=== PATIENT | female | born 1975 | race Caucasian/White ===

== ENCOUNTER 2021-11-06 19:26 | Emergency (ER) | payer OTHER, SELFPAY ==
[2021-11-06 19:29] VITALS: BP 179/116; PULSE 113; RESP 20; TEMP 36.3; O2SAT 99
--- NOTE | 2021-11-06 19:35 | PC.NURSE ---
Patient states she has not seen her PCP in a while and has not been on her meds that she needs to be on such as blood thinners and bp meds.
--- NOTE | 2021-11-06 19:46 | ECG_ITS ---
Measurements Intervals [place] Rate: 102 P: 32 AR: 120 QRS: 47 QRSD: 90 T: -14 QT: 350 QTc: 456 Interpretive Statements SINUS TACHYCARDIA NONSPECIFIC ST & T-WAVE ABNORMALITY- ANTEROLAT/INF LEADS BASELINE ARTIFACT- I, III, AVL BORDERLINE ECG NO PREVIOUS ECG AVAILABLE FOR COMPARISON Electronically Signed On 11-06-2021 21:38:39 CDT by Atul Cash D.O.
--- NOTE | 2021-11-06 19:48 | ED.GENADULT ---
HPI - General Adult General Chief complaint: Skin/Abscess/Foreign Body Stated complaint: Skin Abscess, eye swelling Time Seen by Provider: 11/06/21 19:39 History of Present Illness HPI narrative: 46-year-old female presenting to the emergency department for evaluation of a bacterial infection on her forehead. Patient states symptoms started a few days ago. Patient states since the infection started she does have some swelling tracking down her forehead. Patient denies any other complaints. Patient does use fentanyl. Related Data Allergies Allergy/AdvReac Type Severity Reaction Status Date / Time amitriptyline AdvReac Other Verified 11/06/21 19:34 sertraline [From Zoloft] AdvReac Other Verified 11/06/21 19:34 Review of Systems Review of Systems: CONSTITUTIONAL: Denies fever, chills, or sweats. EYES: Denies visual changes, redness, or discharge. ENT: Denies rhinorrhea, congestion, sore throat, or otalgia. CARDIOVASCULAR: Denies chest pain, palpitations, or edema. RESPIRATORY: Denies cough or dyspnea. GASTROINTESTINAL: Denies abdominal pain, nausea, vomiting, or diarrhea. GENITOURINARY: Denies dysuria or hematuria. SKIN: See HPI MUSCULOSKELETAL: Denies back pain, joint pain, or myalgia. NEUROLOGIC: Denies headache, numbness, or weakness. Exam Narrative: APPEARANCE: Well appearing, no pain, no distress, well-nourished. HEAD: normocephalic, atraumatic. EYES: PERRLA/EOMI, conjunctivae clear. NOSE: Normal no drainage EARS:TMS clear with good light reflex. THROAT: Pharynx clear, no exudate. NECK: Supple. No adenopathy, no masses. RESPIRATORY: Airway patent, respirations nonlabored. Clear to auscultation bilaterally, no rales, rhonchi, wheezing. CARDIOVASCULAR: Regular rate and rhythm without murmurs rubs or gallops. ABDOMINAL: Soft, nontender, nondistended, normal bowel sounds MUSCULOSKELETAL: Moves all extremities. Strength/ROM intact, No edema, No calf tenderness. NEURO: Alert. Cranial nerves II through XII intact. Good gait. Good coordination SKIN: Erythema of medial forehead at the hairline. Area is excoriated. Erythema is localized to a 2 cm area. Patient does have some edema lower on her forehead which appears to be dependent edema Course Course Emergency Course: Patient was started on antibiotics in the emergency department. Patient was updated on the results of her exam and plan for treatment. Patient was encouraged to have close follow-up with primary care physician. Vital Signs Vital signs: Vital Signs Temperature 97.4 F L 11/06/21 19:29 Pulse Rate 113 H 11/06/21 19:29 Respiratory Rate 20 11/06/21 19:29 Blood Pressure 179/116 H 11/06/21 19:29 Pulse Oximetry 99 11/06/21 19:29 Oxygen Delivery Room Air 11/06/21 19:29 Temperature 97.4 F L 11/06/21 19:29 Pulse Rate 95 11/06/21 20:29 Respiratory Rate 18 11/06/21 20:29 Blood Pressure 157/98 H 11/06/21 20:29 Pulse Oximetry 99 11/06/21 20:29 Oxygen Delivery Room Air 11/06/21 19:29 Medical Decision Making Vital Signs Vital Signs: Vital Signs Temperature 97.4 F L 11/06/21 19:29 Pulse Rate 113 H 11/06/21 19:29 Respiratory Rate 20 11/06/21 19:29 Blood Pressure 179/116 H 11/06/21 19:29 Pulse Oximetry 99 11/06/21 19:29 Oxygen Delivery Room Air 11/06/21 19:29 Temperature 97.4 F L 11/06/21 19:29 Pulse Rate 95 11/06/21 20:29 Respiratory Rate 18 11/06/21 20:29 Blood Pressure 157/98 H 11/06/21 20:29 Pulse Oximetry 99 11/06/21 20:29 Oxygen Delivery Room Air 11/06/21 19:29 Discharge Plan Discharge Clinical Impression: Cellulitis Patient Disposition: Home, Self-Care Condition: Stable Instructions: Antibiotic Form, Impetigo (ED), Cellulitis (ED) Additional Instructions: Antibiotic as directed until completed. Have close follow-up with your primary care physician. Prescriptions: New clindamycin HCl 150 mg capsule 150 mg PO Q6H 7 Days Qty: 28 0RF Follow-up/Referr
[2021-11-06] MEDS: CLINDAMYCIN HCL 150 MG CAP PO (20:12)
[2021-11-06] MEDS: ACETAMINOPHEN 500 MG TABLET 1000 MG PO (20:13)
[2021-11-06 20:29] VITALS: BP 157/98; PULSE 95; RESP 18; O2SAT 99
== END 2021-11-06 20:25 | disposition home or self-care (01) ==
PROVIDERS: Emergency Provider Emergency Medicine
DX: L03.211 Cellulitis of face (principal)
CPT/HCPCS: 93005; 99283; A9270

== ENCOUNTER 2022-10-20 18:09 | Emergency (ER) | payer OTHER, SELFPAY ==
[2022-10-20] VITALS (14 sets, daily range): BP systolic 160–180; BP diastolic 95–123; PULSE 69–93; RESP 14–29; TEMP 36.4; O2SAT 100
--- NOTE | 2022-10-20 22:36 | ED.GENADULT ---
HPI - General Adult General Chief complaint: Recheck/Abnormal Lab/Rx Stated complaint: high blood pressure Time Seen by Provider: 10/20/22 21:07 Source: patient Mode of arrival: ambulatory Limitations: no limitations History of Present Illness HPI narrative: 47-year-old female sent from [place] for evaluation of high blood pressure. Upon initial assessment patient was sleeping. She denies any concerns or complaints. States she is not sure why she is here. She been at [place] for 2 days. Past usage of illicit drugs includes fentanyl which she does inject. Denies any nausea, vomiting, pain, fever, body aches, chills. Denies any headaches or any other concerns. Related Data Allergies Allergy/AdvReac Type Severity Reaction Status Date / Time amitriptyline AdvReac Other Verified 10/20/22 18:17 sertraline [From Zoloft] AdvReac Other Verified 10/20/22 18:17 Review of Systems Review of Systems: All systems reviewed & are unremarkable except as noted in HPI and below Exam Const: General: cooperative, healthy appearing, comfortable, no acute distress and well developed Orientation/consciousness: patient oriented x3 HENMT: Head: normal to inspection Eyes: General: appearance normal, both eyes and all related structures Resp: Effort & Inspection: normal respiratory effort and able to speak in complete sentences Auscultation: clear to auscultation bilaterally Cardio: Rate: regular rate Rhythm: regular rhythm Heart sounds: S1 normal heart sound present and S2 normal heart sound present Skin: Other: Multiple track perez noted. No warmth or drainage. Neuro: General: patient oriented x3 Course Vital Signs Vital signs: Vital Signs Temperature 97.6 F 10/20/22 18:13 Pulse Rate 87 10/20/22 18:13 Respiratory Rate 14 10/20/22 18:13 Blood Pressure 180/115 H 10/20/22 18:13 Pulse Oximetry 100 10/20/22 18:13 Oxygen Delivery Room Air 10/20/22 18:13 Temperature 97.6 F 10/20/22 18:13 Pulse Rate 77 10/21/22 00:58 Respiratory Rate 17 10/21/22 00:58 Blood Pressure 162/93 H 10/21/22 00:58 Pulse Oximetry 100 10/20/22 20:56 Oxygen Delivery Room Air 10/20/22 18:13 Medical Decision Making MDM Narrative Medical decision making narrative: 47-year-old female HPI as noted. Patient denies any complaints states she does not know why she is here. Per documentation patient was sent over here due to high blood pressure. Blood pressure elevated upon arrival and remained elevated. Work-up includes CBC, CMP and 1 dose of hydralazine given. CBC without concerning findings, CMP shows a GFR greater than 60 estimated creatinine clearance of 116 and no concerning findings. Blood pressure did come down slightly to 162/93 will discharge home plan primary care to take over for further management of high blood pressure. Differential Diagnosis Differential Diagnosis: Hypertension, elevated blood pressure, anxiety, drug withdrawal. Medical Records Medical records reviewed: Yes I reviewed the external patient's medical records. Vital Signs Vital Signs: Vital Signs Temperature 97.6 F 10/20/22 18:13 Pulse Rate 87 10/20/22 18:13 Respiratory Rate 14 10/20/22 18:13 Blood Pressure 180/115 H 10/20/22 18:13 Pulse Oximetry 100 10/20/22 18:13 Oxygen Delivery Room Air 10/20/22 18:13 Temperature 97.6 F 10/20/22 18:13 Pulse Rate 77 10/21/22 00:58 Respiratory Rate 17 10/21/22 00:58 Blood Pressure 162/93 H 10/21/22 00:58 Pulse Oximetry 100 10/20/22 20:56 Oxygen Delivery Room Air 10/20/22 18:13 Lab Data Lab results reviewed: Yes I reviewed the patient's lab results. 10/20/22 22:37 10/20/22 22:37 Labs: Lab Results 10/20/22 Range/Units 22:37 WBC 9.1 (4.5-10.0) K/mm3 RBC 4.59 (4.2-5.4) M/mm3 Hgb 13.1 (12.0-15.0) g/dL Hct 39.6 (37.0-47.0) % MCV 86.3 (80-100) fl MCH 28.5 (26-34) pg MCHC 33.1 (32-36) g/dl
[2022-10-20 22:53] LABS: Alanine Aminotransferase 103 U/L (6-35); Alkaline Phosphatase 147 U/L (38-126); Anion Gap 7 mmol/L (8-16); Aspartate Amino Transferase 94 U/L (14-36); Bilirubin,Total 0.4 mg/dL (0.2-1.3); Blood Urea Nitrogen 8 mg/dL (7-17); Calcium 8.6 mg/dL (8.4-10.2); Carbon Dioxide 27 mmol/L (22-30); Chloride 108 mmol/L (98-107); Estimated CRCL calculation 116 ml/min; Estimated Glomerular Filt Rate > 60; Glucose 127 mg/dL (65-110); Potassium 3.4 mmol/L (3.4-5.0); Sodium 142 mmol/L (137-145)
[2022-10-20] MEDS: hydrALAZINE 10 MG TABLET PO (22:58)
[2022-10-20 23:05] LABS: Basophils Percent Auto 0.2 % (0.2-1.2); Eosinophils Percent Auto 0.1 % (0-4.4); Hematocrit 39.6 % (37.0-47.0); Hemoglobin 13.1 g/dL (12.0-15.0); Immature Granulocyte Absolute 0.03 K/mm3 (0.00-0.031); Immature Granulocyte Percent A 0.3 % (0-0.5); Lymphocytes Absolute Auto 1.49 K/mm3 (0.9-3.2); Lymphocytes Percent Auto 16.3 % (18.3-44.2); Mean Corpuscular HGB Conc 33.1 g/dl (32-36); Mean Corpuscular Hemoglobin 28.5 pg (26-34); Mean Corpuscular Volume 86.3 fl (80-100); Mean Platelet Volume 9.4 fl (7.4-10.4); Monocytes Absolute Auto 0.3 K/mm3 (0.1-0.6); Monocytes Percent Auto 3.4 % (2.6-8.5); Neutrophils Absolute Auto 7.3 K/mm3 (1.3-6.7); Neutrophils Percent Auto 79.7 % (45.5-73.1); Platelet Count Result 252 k/mm3 (150-375); Red Blood Count 4.59 M/mm3 (4.2-5.4); Red Cell Distribution Width 13.2 % (11.5-14.5); White Blood Count 9.1 K/mm3 (4.5-10.0)
[2022-10-21 00:11] VITALS: PULSE 84; RESP 20
[2022-10-21 00:15] VITALS: PULSE 81; RESP 21
[2022-10-21 00:30] VITALS: PULSE 79; RESP 20
[2022-10-21 00:45] VITALS: PULSE 76; RESP 19
[2022-10-21 00:58] VITALS: BP 162/93; PULSE 77; RESP 17
== END 2022-10-21 01:41 ==
PROVIDERS: Emergency Provider Nurse Practitioner Family
DX: I10 Essential (primary) hypertension (principal)
CPT/HCPCS: 36415; 80053; 85025; 99283; A9270